=== PATIENT | female | born 1955 | race Caucasian/White ===

== ENCOUNTER → 2019-05-21 10:51 | Outpatient (BNVA) | payer MEDICARE, SELFPAY | PROVIDERS: Family Provider Nurse Practitioner; PCP Nurse Practitioner; Visit Provider Nurse Practitioner Family | DX: E11.22 Type 2 diabetes mellitus with diabetic chronic kidney disease (principal); E03.8 Other specified hypothyroidism; I11.0 Hypertensive heart disease with heart failure; N18.3 Chronic kidney disease, stage 3 (moderate); E78.5 Hyperlipidemia, unspecified; J43.9 Emphysema, unspecified; J30.9 Allergic rhinitis, unspecified; M54.5 Low back pain; G89.29 Other chronic pain | CPT/HCPCS: 80053; 80061; 83036; 84443; 85025 ==

== ENCOUNTER → 2019-08-13 11:10 | Outpatient (BNVA) | payer MEDICARE, SELFPAY | PROVIDERS: Family Provider Nurse Practitioner; PCP Nurse Practitioner; Visit Provider Nurse Practitioner | DX: E11.22 Type 2 diabetes mellitus with diabetic chronic kidney disease (principal); N18.3 Chronic kidney disease, stage 3 (moderate); E03.8 Other specified hypothyroidism | CPT/HCPCS: 80053; 80061; 81003; 82044; 84439; 84443; 84481; 85025 ==

== ENCOUNTER → 2019-11-19 14:23 | Outpatient (BNVA) | payer MEDICARE, SELFPAY | PROVIDERS: Family Provider Nurse Practitioner; PCP Nurse Practitioner; Visit Provider Nurse Practitioner | DX: E11.22 Type 2 diabetes mellitus with diabetic chronic kidney disease (principal); N18.3 Chronic kidney disease, stage 3 (moderate); E03.8 Other specified hypothyroidism; F41.1 Generalized anxiety disorder; J43.9 Emphysema, unspecified; J30.9 Allergic rhinitis, unspecified; M54.5 Low back pain; E87.6 Hypokalemia; E78.5 Hyperlipidemia, unspecified; I10 Essential (primary) hypertension; R60.9 Edema, unspecified | CPT/HCPCS: 80053; 84443 ==

== ENCOUNTER → 2020-02-18 14:59 | Outpatient (BNVA) | payer MEDICARE, SELFPAY | PROVIDERS: Family Provider Nurse Practitioner; PCP Nurse Practitioner; Visit Provider Nurse Practitioner | DX: E03.8 Other specified hypothyroidism (principal); E11.22 Type 2 diabetes mellitus with diabetic chronic kidney disease; J43.9 Emphysema, unspecified; J30.9 Allergic rhinitis, unspecified; E78.5 Hyperlipidemia, unspecified; R60.9 Edema, unspecified; M54.5 Low back pain; I10 Essential (primary) hypertension; F41.8 Other specified anxiety disorders; F41.1 Generalized anxiety disorder; E87.6 Hypokalemia; J43.1 Panlobular emphysema; N18.30 Chronic kidney disease, stage 3 unspecified | CPT/HCPCS: 80053; 83036; 84439; 84443; 84481; 85025; 87635 ==

== ENCOUNTER → 2020-07-28 11:48 | Outpatient (BNVA) | payer MEDICARE, SELFPAY | PROVIDERS: Family Provider Nurse Practitioner; PCP Nurse Practitioner; Visit Provider Nurse Practitioner | DX: E11.22 Type 2 diabetes mellitus with diabetic chronic kidney disease (principal); E03.8 Other specified hypothyroidism; J43.1 Panlobular emphysema; J43.9 Emphysema, unspecified; E78.5 Hyperlipidemia, unspecified; J30.9 Allergic rhinitis, unspecified; F41.8 Other specified anxiety disorders; G89.29 Other chronic pain; M54.40 Lumbago with sciatica, unspecified side; F41.1 Generalized anxiety disorder; E87.6 Hypokalemia; I10 Essential (primary) hypertension; R60.9 Edema, unspecified; N18.30 Chronic kidney disease, stage 3 unspecified | CPT/HCPCS: 80053; 80061; 82043; 83036; 84439; 84443; 84481 ==

== ENCOUNTER → 2021-01-18 12:21 | Outpatient (BNVA) | payer MEDICARE, SELFPAY | PROVIDERS: Family Provider Nurse Practitioner; PCP Nurse Practitioner; Visit Provider Nurse Practitioner | DX: E11.22 Type 2 diabetes mellitus with diabetic chronic kidney disease (principal); E03.8 Other specified hypothyroidism; J43.1 Panlobular emphysema; J30.9 Allergic rhinitis, unspecified; F41.8 Other specified anxiety disorders; R60.9 Edema, unspecified; E78.2 Mixed hyperlipidemia; I10 Essential (primary) hypertension; R06.00 Dyspnea, unspecified | CPT/HCPCS: 71046; 80053; 80061; 84443 ==

== ENCOUNTER → 2021-04-04 15:14 | Outpatient (BNVA) | payer MEDICARE, SELFPAY | PROVIDERS: Family Provider Nurse Practitioner; PCP Nurse Practitioner; Visit Provider Nurse Practitioner | DX: E03.8 Other specified hypothyroidism (principal); L03.116 Cellulitis of left lower limb; J43.1 Panlobular emphysema; J30.9 Allergic rhinitis, unspecified; F41.8 Other specified anxiety disorders; E11.22 Type 2 diabetes mellitus with diabetic chronic kidney disease; R60.9 Edema, unspecified; I10 Essential (primary) hypertension; E78.2 Mixed hyperlipidemia; M54.40 Lumbago with sciatica, unspecified side; G89.29 Other chronic pain; L03.119 Cellulitis of unspecified part of limb; N18.30 Chronic kidney disease, stage 3 unspecified | CPT/HCPCS: 80053; 83036; 84439; 84443; 84481; 85025 ==

== ENCOUNTER → 2021-06-27 16:12 | Outpatient (BNVA) | payer MEDICARE, SELFPAY | PROVIDERS: Family Provider Nurse Practitioner; PCP Nurse Practitioner; Visit Provider Nurse Practitioner | DX: E11.22 Type 2 diabetes mellitus with diabetic chronic kidney disease (principal); N18.30 Chronic kidney disease, stage 3 unspecified; E03.8 Other specified hypothyroidism; E03.9 Hypothyroidism, unspecified | CPT/HCPCS: 80053; 81000; 83036; 84439; 84443; 84481; 85025 ==

== ENCOUNTER → 2021-07-17 14:52 | Outpatient (BNVA) | payer MEDICARE, SELFPAY | PROVIDERS: Family Provider Nurse Practitioner; PCP Nurse Practitioner; Visit Provider Nurse Practitioner | DX: E11.22 Type 2 diabetes mellitus with diabetic chronic kidney disease (principal); N18.30 Chronic kidney disease, stage 3 unspecified | CPT/HCPCS: 80053; 85025 ==

== ENCOUNTER → 2022-03-12 12:15 | Outpatient (BNVA) | payer MEDICARE, SELFPAY | PROVIDERS: Family Provider Nurse Practitioner; PCP Nurse Practitioner; Visit Provider Nurse Practitioner | DX: I50.9 Heart failure, unspecified (principal); J43.1 Panlobular emphysema; E78.2 Mixed hyperlipidemia; J30.9 Allergic rhinitis, unspecified; E11.22 Type 2 diabetes mellitus with diabetic chronic kidney disease; F41.8 Other specified anxiety disorders; G89.29 Other chronic pain; M54.40 Lumbago with sciatica, unspecified side; E03.8 Other specified hypothyroidism; R60.9 Edema, unspecified; R00.0 Tachycardia, unspecified; R10.31 Right lower quadrant pain; I10 Essential (primary) hypertension | CPT/HCPCS: 80053; 80061; 81000; 83036; 84443 ==

== ENCOUNTER → 2023-09-03 10:27 | Outpatient (BNVA) | payer MEDICARE, SELFPAY | PROVIDERS: Family Provider Nurse Practitioner; PCP Nurse Practitioner; Visit Provider Nurse Practitioner | DX: E11.9 Type 2 diabetes mellitus without complications (principal); E03.8 Other specified hypothyroidism | CPT/HCPCS: 80053; 80061; 82607; 83036; 84443 ==

== ENCOUNTER → 2024-03-30 14:48 | Outpatient (BNVA) | payer MEDICARE, SELFPAY | PROVIDERS: Family Provider Nurse Practitioner; PCP Nurse Practitioner; Visit Provider Nurse Practitioner | DX: E11.9 Type 2 diabetes mellitus without complications (principal) | CPT/HCPCS: 80053; 80061; 82607; 83036; 84443 ==